=== PATIENT | male | born 1995 | race African-American/Black ===

== ENCOUNTER 2016-12-16 23:11 | Emergency (ER) | payer BC ==
[~2016-12-16] VITALS: Ht 180.3 cm; Wt 65.8 kg
[2016-12-16 23:22] VITALS: BP 131/78
--- NOTE | 2016-12-16 23:29 | PHYS DOC ---
Past Medical History Past Medical History: No Pertinent History Past Surgical History: No Surgical History Alcohol Use: Occasionally Drug Use: None Adult General Chief Complaint Chief Complaint: RIB PAIN [facility] HPI Patient is a 21 year old male who presents with 7 out of 10 sharp right anterior rib/chest pain that began 4 days ago. Patient states the pain is worse on deep breaths. Patient denies any trauma. He states he has previous history of asthma but has not had a flareup for years. Patient denies any cough or congestion, denies any shortness of breath. He has not tried any over-the- counter medications. Review of Systems Review of Systems Constitutional: Denies fever or chills [] Eyes: Denies change in visual acuity, redness, or eye pain [] HENT: Denies nasal congestion or sore throat [] Respiratory: Right anterior rib/chest pain Cardiovascular: No additional information not addressed in HPI [] GI: Denies abdominal pain, nausea, vomiting, bloody stools or diarrhea [] : Denies dysuria or hematuria [] Musculoskeletal: Denies back pain or joint pain [] Integument: Denies rash or skin lesions [] Neurologic: Denies headache, focal weakness or sensory changes [] Allergies Allergies Allergies Coded Allergies Type Severity Reaction Last Updated Verified No Known Drug Allergies 12/16/16 No Physical Exam Physical Exam Constitutional: Well developed, well nourished, no acute distress, non-toxic appearance. [] HENT: Normocephalic, atraumatic, bilateral external ears normal, oropharynx moist, no oral exudates, nose normal. [] Eyes: PERRLA, EOMI, conjunctiva normal, no discharge. [] Neck: Normal range of motion, no tenderness, supple, no stridor. [] Cardiovascular:Heart rate regular rhythm, no murmur [] Lungs & Thorax: Bilateral breath sounds clear to auscultation [] Abdomen: Bowel sounds normal, soft, no tenderness, no masses, no pulsatile masses. [] Skin: Warm, dry, no erythema, no rash. [] Back: No tenderness, no CVA tenderness. [] Extremities: No tenderness, no cyanosis, no clubbing, ROM intact, no edema. [] Neurologic: Alert and oriented X 3, normal motor function, normal sensory function, no focal deficits noted. [] Psychologic: Affect normal, judgement normal, mood normal. [] Current Patient Data Vital Signs Vital Signs Date Time Temp Pulse Resp B/P (MAP) Pulse Ox O2 Delivery O2 Flow Rate FiO2 12/16/16 23:22 97.4 92 16 100 Room Air 97.4 EKG EKG [] Radiology/Procedures Radiology/Procedures [] Course & Med Decision Making Course & Med Decision Making Pertinent Labs and Imaging studies reviewed. (See chart for details) Patient is in the ED with right anterior rib/chest pain that began 4 days ago, no known injury. Chest x-ray interpreted by Dr. Carrion was negative for any acute findings. Highly suspect costochondritis or pleurisy. Discharged patient with ibuprofen for use 3 times a day. Recommended following up with the PCP in 1 -2 weeks. Dragon Disclaimer Dragon Disclaimer This electronic medical record was generated, in whole or in part, using a voice recognition dictation system. Departure Departure Impression: Primary Impression: Costochondritis, acute Disposition: 01 HOME, SELF-CARE Condition: STABLE Patient Instructions: Costochondritis-Brief Additional Instructions: You were seen with pain on the right ribs/chest area. Take ibuprofen 3 times a day as needed for pain. Return to the emergency room if symptoms worsen. Follow- up with your doctor in one to 2 weeks. Scripts Ibuprofen (IBUPROFEN) 600 Mg Tablet 600 MG PO PRN Q6HRS Y for INFLAMMATION, #30 TAB Prov: MEMO MATAMOROS APRN 12/16/16 MEMO MATAMOROS APRN Dec 16, 2016 23:29
[2016-12-16] MEDS ORDERED: IBUP-1007 PO (23:46)
--- NOTE | 2016-12-17 07:55 | RAD ---
Chest, 2 views, 12/16/2016: History: Chest pain The heart size and pulmonary vascularity are normal. No pulmonary infiltrates are seen. There is no evidence of pleural fluid. IMPRESSION: No acute cardiopulmonary abnormality is detected
== END 2016-12-16 23:51 | disposition home or self-care (01) ==
LOC: ER 23:11
DX: M94.0 Chondrocostal junction syndrome [Tietze] (principal); J45.909 Unspecified asthma, uncomplicated
CPT/HCPCS: 71020; 99284-25

== ENCOUNTER 2017-11-12 16:05 | Emergency (ER) | payer BC ==
[~2017-11-12] VITALS: Ht 177.8 cm; Wt 66.8 kg
[~2017-11-12 16:05] MED LIST: IBUP-1007 PO
[2017-11-12 16:19] VITALS: BP 115/77
[2017-11-12] MEDS ORDERED: diphenhydrAMINE HCL 25 MG CAPSULE PO ONE (16:30)
[2017-11-12] MEDS ORDERED: predniSONE 10 MG TABLET PO ONE (16:30)
[2017-11-12] MEDS ORDERED: METH4TAB2 PO (17:39)
--- NOTE | 2017-11-12 17:40 | PHYS DOC ---
Past Medical History Past Medical History: No Pertinent History Past Surgical History: No Surgical History Alcohol Use: Occasionally Drug Use: None Adult General Chief Complaint Chief Complaint: ALLERGIC REACTION [facility] HPI Patient is a 22 year old male who presents with hives. The patient is allergic to fish but states that he is sure he did not have any fish containing products. He started breaking out with hives and is now covered in them. He denies any tingling in his throat or shortness of breath. Review of Systems Review of Systems Constitutional: Denies fever or chills [] Respiratory: Denies cough or shortness of breath [] Cardiovascular: No additional information not addressed in HPI [] Musculoskeletal: Denies back pain or joint pain [] Integument: See history of present illness Neurologic: Denies headache, focal weakness or sensory changes [] Endocrine: Denies polyuria or polydipsia [] All other systems were reviewed and found to be within normal limits, except as documented in this note. Current Medications Current Medications Current Medications Medications (Trade) Dose Ordered Sig/Brenda Start Time Stop Time Status Last Admin Dose Admin Diphenhydramine HCl (Benadryl) 50 mg 1X ONCE 11/12/17 16:30 11/12/17 16:31 DC 11/12/17 16:36 50 MG Prednisone (Prednisone) 50 mg 1X ONCE 11/12/17 16:30 11/12/17 16:31 DC 11/12/17 16:38 50 MG Allergies Allergies Allergies Coded Allergies Type Severity Reaction Last Updated Verified Fish Containing Products Allergy Severe ANAPHYLAXIS 11/12/17 Yes Physical Exam Physical Exam Constitutional: Well developed, well nourished, no acute distress, non-toxic appearance. [] HENT: Normocephalic, atraumatic, bilateral external ears normal, oropharynx moist, no oral exudates, nose normal. [] Eyes: PERRLA, EOMI, conjunctiva normal, no discharge. [] Neck: Normal range of motion, no tenderness, supple, no stridor. [] Cardiovascular:Heart rate regular rhythm, no murmur [] Lungs & Thorax: Bilateral breath sounds clear to auscultation [] Abdomen: Bowel sounds normal, soft, no tenderness, no masses, no pulsatile masses. [] Skin: Patient has generalized urticarial rash and mild swelling to bilateral eyelids Neurologic: Alert and oriented X 3, normal motor function, normal sensory function, no focal deficits noted. [] Psychologic: Affect normal, judgement normal, mood normal. [] Current Patient Data Vital Signs Vital Signs Date Time Temp Pulse Resp B/P (MAP) Pulse Ox O2 Delivery O2 Flow Rate FiO2 11/12/17 16:19 97.8 90 18 115/77 (90) 98 Room Air 97.8 EKG EKG [] Radiology/Procedures Radiology/Procedures [] Course & Med Decision Making Course & Med Decision Making Pertinent Labs and Imaging studies reviewed. (See chart for details) []The patient was given Benadryl and prednisone in the emergency department. Dragon Disclaimer Dragon Disclaimer This electronic medical record was generated, in whole or in part, using a voice recognition dictation system. Departure Departure Impression: Primary Impression: Hives Disposition: 01 HOME, SELF-CARE Condition: STABLE Referrals: NO PCP (PCP) Patient Instructions: Hives Additional Instructions: Take the medication as directed with food on your stomach. Take Benadryl scheduled as well. Follow-up with your primary care provider if not improving in 3 days or return to the emergency department immediately if worsening. Scripts Methylprednisolone (MEDROL) 4 Mg Tab.ds.pk 1 PKG PO UD, #1 PKG Prov: JOSE LUIS LUO APRN 11/12/17 JOSE LUIS LUO APRN Nov 12, 2017 17:40
== END 2017-11-12 17:45 | disposition home or self-care (01) ==
LOC: ER 16:05
DX: L50.9 Urticaria, unspecified (principal); Z91.013 Allergy to seafood
CPT/HCPCS: 99283; J7512; Q0163